=== PATIENT | female | born 1940 | race Caucasian/White ===

== ENCOUNTER → 2016-07-31 | Outpatient (CLI) | payer OTHER ==
[~2016-07-31] MED LIST: ACID1GRA2 PO; ALPR0.25 PO; ASPI81TA14 PO; ENAL10TA PO; ENAL5TAB PO; GLIM2TAB2 PO; GLYB2.5T PO; IPRA3AMP NPPB; LEVO750T26 PO; PRED10TA PO; RANI150T8 PO; RANI300C PO; RANI300T3 PO
== END | disposition home or self-care (01) ==
LOC: CARD 14:14
PROVIDERS: ATTEND Internal Medicine
DX: R09.02 Hypoxemia (principal)
CPT/HCPCS: 94060; 94620; 94726; 94729